=== PATIENT | male | born 1945 | race Caucasian/White ===

== ENCOUNTER 2016-06-29 14:56 | Emergency (ER) | payer OTHER, MEDICARE ==
[~2016-06-29] VITALS: Ht 170.2 cm; Wt 69.9 kg
[2016-06-29 15:27] LABS: ABSOLUTE BASOPHIL COUNT 0 /CUMM (0.0-0.2); ABSOLUTE EOSINOPHIL COUNT 0.5 /CUMM (0.0-0.7); ABSOLUTE GRANULOCYTE CT 9.8 /CUMM (1.4-6.5); ABSOLUTE LYMPH COUNT 2.2 /CUMM (1.2-3.4); ABSOLUTE MONOCYTE COUNT 1.6 /CUMM (0.10-0.60); BASOPHIL % 0.3 % (0.0-2.0); EOSINOPHIL % 3.7 % (0-5); GRANULOCYTE % 69.3 % (42.2-75.2); HEMATOCRIT 44.6 % (42-52); MEAN CORPUSCULAR HGB 28.9 PG (27.0-31.0); MEAN CORPUSCULAR HGB CONC 33.1 G/DL (33.0-37.0); MEAN CORPUSCULAR VOLUME 87.2 FL (80.0-94.0); MEAN PLATELET VOLUME 8.9 FL (7.4-10.4); PLATELET COUNT 277 /CUMM (130-400); RBC DISTRIBUTION WIDTH 12.6 % (11.5-14.5); RED BLOOD CELL CT 5.11 /CUMM (4.70-6.10); WHITE BLOOD CELL COUNT 14.1 /CUMM (4.8-10.8)
--- NOTE | 2016-06-29 16:15 | RADIOLOGY REPORT ---
EXAMINATION: XR CHEST CLINICAL INFORMATION: Shortness of breath. COMPARISON: 04/20/2015 TECHNIQUE: PA and lateral views of the chest were obtained. FINDINGS: Stable borderline prominence of the cardiac silhouette. Mediastinum and lashawn are stable from previous. Mild interstitial prominence in the lung bases, stable. No focal consolidation, effusion, edema or pneumothorax. Mild degenerative changes of the spine. IMPRESSION: No evidence of acute process.
--- NOTE | 2016-06-29 17:40 | ED CARDIAC/CP/PALPITATIONS ---
History of Present Illness General Chief Complaint: Chest Pain Stated Complaint: CP Source: patient, family () Exam Limitations: no limitations Vital Signs & Intake/Output Vital Signs & Intake/Output Vital Signs Date Time Temp Pulse Resp B/P Pulse O2 O2 Flow FiO2 Ox Delivery Rate 06/29 2035 97.8 50 18 121/71 97 Room Air 06/29 1731 97.3 62 19 128/79 97 Room Air ED Intake and Output 06/30 0000 06/29 1200 Intake Total Output Total Balance Patient 154 lb Weight Allergies Coded Allergies: NO KNOWN ALLERGIES (04/20/15) Reconcile Medications Amoxicillin 875 MG TABLET 1 TAB PO BID dental abscess Aspirin (Ecotrin*) 81 MG TABLET.DR 1 TAB PO DAILY HEART/BLOOD (Reported) Carvedilol 12.5 MG TABLET 1 TAB PO BID BP/HEART (Reported) Lisinopril 5 MG TABLET 1 TAB PO DAILY BP (Reported) Rosuvastatin Calcium (Crestor) 40 MG TABLET 1 TAB PO DAILY CHOLESTEROL ( Reported) Triage Note: PT STATES HE HAD [place] ABOUT 14 MONTHS AGO AND HIS ARM WENT NUMB. PT STATES TODAY HE HAD CHEST PAIN WITH NO RADIATION. PT HAS A TOOTH ACHE AND EAR PAIN TO LEFT SIDE OF HIS FACE. PT DENIES SOB OR DIAPHORESIS DURING EPISODE. PT STATES HE MAY HAVE LIFTED SOMETHING HEAVY THIS AM AND THAT MIGHT BE THE SOURCE OF HIS CHEST PAIN. PT STATES HE IS STILL HAVING CHEST PAIN WHEN HE BREATHS HEAVY Triage Nurses Notes Reviewed? yes HPI: Patient is a 70-year-old male presents complaining of midsternal chest pain. Patient reports chest pain began at 10 AM this morning, was continuous until approximately 4 PM. Pain was a sharp pain that was moderate in intensity worse with deep breath. Pain is currently 0 out of 10. Patient had mild associated dyspnea with the pain prior to arrival. Patient was lifting something heavy this morning prior to the onset of his pain. Patient had a myocardial infarction approximate 14 months ago reported that with that he had pain that radiated to his left upper extremity. No current radiation of his chest pain. Patient denies Palpitations, lower extremity pain, lower extremity swelling, orthopnea. Patient has taken 162 mg of aspirin today. (SEEMA COTO,YUMIKO) General Source: patient (YONATHAN HOWARD,NAZIA) Past History Travel History Traveled to [place] past 21 day No Medical History Any Pertinent Medical History? see below for history Cardiovascular: hyperlipidemia (NO LONGER TREATED), [place] Surgical History Surgical History: CARDIAC STENT Psychosocial History What is your primary language Sinhala Tobacco Use: Quit >30 days ago ETOH Use: denies use Illicit Drug Use: denies illicit drug use Family History Hx Contributory? No (YUMIKO SOSA) Review of Systems Review of Systems Constitutional: Denies: chills, fever. EENTM: Reports: mouth pain, tooth pain (For 1 month). Respiratory: Denies: cough, short of breath. Cardiovascular: Denies: chest pain. GI: Denies: abdominal pain. Musculoskeletal: Denies: back pain, neck pain. Skin: Reports: no symptoms. Neurological/Psychological: Denies: headache, numbness. Hematologic/Endocrine: Denies: bruising, bleeding. Immunologic/Allergic: Denies: splenectomy. (YUMIKO SOSA) Physical Exam Physical Exam General Appearance: well developed/nourished, alert, awake Head: atraumatic, normal appearance Eyes: Bilateral: normal appearance, PERRL, EOMI. Ears, Nose, Throat: normal pharynx, hearing grossly normal, DENTAL ABSCESS LEFT FIRST MOLAR INFERIORLY Neck: normal inspection, supple, full range of motion Respiratory: normal breath sounds, chest non-tender, no respiratory distress, lungs clear, CHEST WALL PAIN INCREASES WITH TWISTING HIS THORAX AND MOVING HIS UPPER EXTREMITIES Cardiovascular: regular rate/rhythm Peripheral Pulses: 2+ dorsalis pedis (R), 2+ dorsalis pedis (L) Gastrointestinal: soft, non-tender Back: normal inspection, normal range of motion Extremities: normal inspection, normal capillary refill, normal range of motion, no edema, NO CALF TENDERNESS Neurologic/Psych: no motor/sensory deficits, awake, alert, oriented x 3, normal gait, normal mood/affect Skin: intact, normal color, warm/dry Lymphatic: no anterior cervical hiren Core Measures ACS in differential dx? Yes ASA ordered for poss ACS? patient took 162 mg of aspirin today prior to arrival. Severe Sepsis Present: No Septic Shock Present: No (YUMIKO SOSA) Progress Differential Diagnosis: AMI, costochondritis, musculoskeletal pain, myocarditis, pericarditis, pneumonia, pneumothorax, pulmonary embolism, unstable angina, V- fib/V-Tach Plan of Care: Orders Procedure Date/time Status TROPONIN LEVEL 06/29 1914 Complete EKG 01/16 1915 Active Add-on Test (ER Only) 06/29 1842 Active D-DIMER 06/29 1513 Complete TROPONIN LEVEL 06/29 1512 Complete MAGNESIUM 06/29 1512 Complete COMPREHENSIVE METABOLIC PANEL 06/29 1512 Complete CHOLESTEROL 06/29 1512 Complete CBC WITHOUT DIFFERENTIAL 06/29 151 Complete EKG 06/29 1457 Active Laboratory Tests 06/29/16 1936: Troponin I 0.02 06/29/16 1513: Anion Gap 7, Estimated GFR > 60, BUN/Creatinine Ratio 18.2, Glucose 114 H, Calcium 9.5, Magnesium 2.0, Total Bilirubin 0.8, AST 25, ALT 36, Alkaline Phosphatase 73, Troponin I 0.01, Total Protein 7.0, Albumin 4.0, Globulin 3.0, Albumin/Globulin Ratio 1.3, Cholesterol 141, D-Dimer < 200, CBC w Diff NO MAN DIFF REQ, RBC 5.11, MCV 87.2, MCH 28.9, RDW 12.6, MPV 8.9, Gran % 69.3, Lymphocytes % 15.6 L, Monocytes % 11.1 H, Eosinophils % 3.7, Basophils % 0.3, Absolute Granulocytes 9.8 H, Absolute Lymphocytes 2.2, Absolute Monocytes 1.6 H, Absolute Eosinophils 0.5, Absolute Basophils 0, PUBS MCHC 33.1 Patient chest pain free on initial exam. 1804: Discussed with Dr. Hinojosa. Evaluated by Dr. Hinojosa. 2034: Results of labs and EKG discussed with the patient is . Patient remained symptom free. 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 (SEEMA COTO,YUMIKO) Diagnostic Imaging: Viewed by Me: Radiology Read. Discussed w/RAD: Radiology Read. Radiology Impression: PATIENT: BIANCA KILLIAN PRESENT AGE: 70 PATIENT ACCOUNT NO: [id number] : 47 LOCATION: [facility] ORDERING PHYSICIAN: TARA GARNER DO (TBS) SERVICE DATE: 06/29/16 EXAM TYPE: RAD - XRY-CHEST XRAY, PA AND LATERAL EXAMINATION: XR CHEST CLINICAL INFORMATION: Shortness of breath. COMPARISON: 04/20/2015 TECHNIQUE: PA and lateral views of the chest were obtained. FINDINGS: Stable borderline prominence of the cardiac silhouette. Mediastinum and lashawn are stable from previous. Mild interstitial prominence in the lung bases, stable. No focal consolidation, effusion, edema or pneumothorax. Mild degenerative changes of the spine. IMPRESSION: No evidence of acute process. DICTATED BY: COSMO VILLAVICENCIO MD DATE/TIME DICTATED:06/29/161549 LABOR AND DELIVERY REGISTERED NURSE:MARTIR DATE/TIME TRANSCRIBED:06/29/161549 CONFIDENTIAL, DO NOT COPY WITHOUT APPROPRIATE AUTHORIZATION. <Electronically signed in Other Vendor System> SIGNED BY: COSMO VILLAVICENCIO MD 06/29/16 1615 Initial ED EKG: normal intervals, normal sinus rhythm, nonspecific ST T wave chg Prior EKG: changed (prior ekg showed STEMI) Repeat EKG: unchanged (YUMIKO SOSA) Departure Departure Time of Disposition: 2033 Disposition: HOME OR SELF CARE Condition: Stable Clinical Impression Primary Impression: Chest pain Qualifiers: Chest pain type: unspecified Qualified Code: R07.9 - Chest pain, unspecified Secondary Impressions: Dental abscess Referrals: PATIENT HAS NO PRIMARY CARE DR (PCP/Family) Additional Instructions: Follow up with your business office assistant this week for further evaluation. Call in the morning for appointment. Return to the ER immediately if chest pain returns, difficulty breathing or worsening of symptoms. Also follow-up with a dentist within 1-2 weeks for further evaluation. Call tomorrow for appointment. Return to the emergency department if increasing facial swelling, fevers, increasing pain, difficult swallowing, or worsening of symptoms. Departure Forms: Customer Survey General Discharge Information Prescriptions: Current Visit Scripts Amoxicillin 1 TAB PO BID #20 TAB (YUMIKO SOSA) PA/RUBBER [employer] AND TUBES SUPERVISOR Co-Sign Statement Statement: ED Attending supervision documentation- [X] I saw and evaluated the patient. I have also reviewed all the pertinent lab results and diagnostic results. I agree with the findings and the plan of care as documented in the PA's/RUBBER TI[employer] AND TUB[employer] SUPERVISOR's documentation. [X] I have reviewed the ED Record and agree with the PA's/RUBBER TIRE AND TUB[employer] SUPERVISOR's documentation. [] Additions or exceptions (if any) to the PAs/RUBBER TI[employer] AND TUB[employer] SUPERVISOR's note and plan are summarized below: [] (YONATHAN HOWARD,NAZIA) Critical Care Note Critical Care Note Critical Care Time: non-applicable (YUMIKO SOSA)
[2016-06-29] MEDS ORDERED: ASPIRIN EC81 M1 PO (18:11)
[2016-06-29] MEDS ORDERED: CRESTOR40 M2 PO (18:12)
[2016-06-29] MEDS ORDERED: CARVEDILOL12.5 M1 PO (18:12)
[2016-06-29] MEDS ORDERED: LISINOPRIL5 M1 PO (18:12)
[2016-06-29] MEDS ORDERED: AMOXICILLIN875 M1 PO (20:34)
[2016-06-29 20:36] VITALS: BP 121/71
== END 2016-06-29 20:39 ==
LOC: ERH 14:56
PROVIDERS: Emergency Medicine
DX: R07.89 Other chest pain (principal); K04.7 Periapical abscess without sinus; E78.5 Hyperlipidemia, unspecified; Z87.891 Personal history of nicotine dependence
CPT/HCPCS: 93005; 93010